=== PATIENT | male | born 1940 | race Caucasian/White ===

== ENCOUNTER 2019-10-10 17:14 | Observation (INO) ==
[2019-10-10] MEDS ORDERED: ASPIRIN CHEW 324 MG PO STA (17:39)
--- NOTE | 2019-10-10 18:03 | XRay Report ---
XR chest 1V portable HISTORY: 79 years-old Male Chest Pain . Atypical chest pain COMPARISON: CT thoracic spine 08/30/2018 TECHNIQUE: Portable AP view of the chest FINDINGS: Cardiac silhouette is enlarged. Prior median sternotomy. Hyperinflation with mild linear bibasilar de nsities suggestive of atelectasis. Pleural calcifications of the lung apices. There is no pneumothora x, pleural effusion, overt pulmonary edema or airspace consolidation typical for pneumonia. Hyperinfl ation. Degenerative changes of the shoulders and spine. IMPRESSION: Cardiomegaly without acute process. ACT 112: Negative or not required by law. The above report was generated using voice recognition software. It may contain grammatical, syntax o r spelling errors. Electronically signed by: Jerry Alexander M.D. 10/10/2019 6:02 PM
[2019-10-10 18:09] LABS: Basophils # (auto) 0.03 K/uL (0-0.2); Basophils % (auto) 0.2 %; Eosinophils # (auto) 0.17 K/uL (0-0.5); Eosinophils % (auto) 1.4 %; Hematocrit (blood only) 48.2 % (42-52); Hemoglobin 16.5 g/dL (14.0-18.0); Immature Granulocytes # (auto) 0.04 K/uL (0.00-0.02); Immature Granulocytes % (auto) 0.3 %; Lymphocytes # (auto) 2.95 K/uL (1.2-3.4); Lymphocytes % (auto) 24.4 %; Mean Corpuscular Hemoglobin 30.8 pg (25-34); Mean Corpuscular Hgb Conc 34.2 g/dL (32-36); Mean Corpuscular Volume 89.9 fL (80-100); Mean Platelet Volume 9.5 fL (7.4-10.4); Monocytes # (auto) 0.98 K/uL (0.11-0.59); Monocytes % (auto) 8.1 %; Neutrophils % (auto) 65.6 %; Platelet Count 318 K/uL (130-400); RDW Coefficient of Variation 13.1 % (11.5-14.5); RDW Standard Deviation 42.6 fL (36.4-46.3); Red Blood Count 5.36 M/uL (4.7-6.1); White Blood Count 12.07 K/uL (4.8-10.8)
[2019-10-10 18:22] LABS: Partial Thromboplastin Time 26.8 Seconds (21.0-31.0); Prothrombin Time 10.8 Seconds (9.0-12.0)
[2019-10-10 18:29] LABS: Albumin Level 4.2 gm/dl (3.4-5.0); Blood Urea Nitrogen 18 mg/dl (7-18); Calcium 9.1 mg/dl (8.5-10.1); Carbon Dioxide 25 mmol/L (21-32); Chloride 106 mmol/L (98-107); Glucose 93 mg/dl (70-99); Lipase 160 U/L (73-393); Potassium 4.1 mmol/L (3.5-5.1); Sodium 137 mmol/L (136-145)
[2019-10-10 19:13] LABS: Alanine Aminotransferase 67 U/L (12-78); Albumin Globulin Ratio 1.1 (0.9-2); Alkaline Phosphatase 89 U/L (45-117); BUN Creatinine Ratio 14.4 (10-20); Bilirubin,Total 0.4 mg/dl (0.2-1); Creatinine Clr Calc Pharmacy 65.2 ml/min; Est GFR (African American) 62.2; Est GFR (Non-African American) 53.6; Total Protein 8.2 gm/dl (6.4-8.2); Troponin I < 0.015 ng/ml (0-0.045)
[2019-10-10 19:22] LABS: Aspartate Aminotransferase 36 U/L (15-37)
--- NOTE | 2019-10-10 20:11 | Emergency Department Note ---
Entered by Eleonora Gardner acting as a scribe for Scott Carroen DO History of Present Illness General Chief complaint: Cardiac Assessment Stated complaint: SWEATS, CHEST PRESSURE, COULDN'T BREATH, ELEV BP Source: patient Mode of arrival: ambulatory Limitations: no limitations History of Present Illness Provider complaint: Chest pain Onset (ago): hour(s) (around 1400) Location: chest Pain Consistency: + now resolved and + other (episode) Quality: + other (pressure) Relieved By: + rest Associated symptoms: + diaphoresis and + other (Additional symptoms: difficulty breathing. Denies: arm pain, jaw pain, abdominal pain) Treatments prior to arrival: none The patient is a 79 year old male with a history of neck arthritis and hypertension who presents to the Emergency Room with complaints of a now- resolved episode of chest pain occurring around 1400 today. The patient reports that he was shopping at [email or web address] when he suddenly felt a chest pressure that made it difficult for him to breathe. He adds that he was diaphoretic but did not have any arm pain, jaw pain and abdominal pain. He notes that his chest symptoms started resolving before he even left the store. He predicts that it lasted for about 30 minutes and improved with rest. He reports that he subsequently saw Dr. Prudencio Triana at the [facility] prior to arrival. The patient states that he has no personal history of heart disease and catheterizations. He also notes that he does not smoke. Home Medications Home Medications Medication Instructions Recorded Confirmed Type aspirin 81 mg PO QAM 08/30/18 10/10/19 History cranberry 400 mg PO QAM 08/30/18 10/10/19 History finasteride 5 mg PO QAM 08/30/18 10/10/19 History lisinopril 10 mg PO QAM 08/30/18 10/10/19 History multivitamin 1 cap PO QAM 08/30/18 10/10/19 History levothyroxine 75 mcg PO QAM 10/10/19 10/10/19 History Allergies Allergy/AdvReac Type Severity Reaction Status Date / Time No Known Allergies Allergy Verified 10/10/19 18:15 Past Med/Surg History Medical History Arthritis of neck Hypertension Family History Brother Diabetes Other Family history non-contributory Social History marital status: Current Living Situation: Spouse current occupational status: retired Feels Safe at Home: Yes Smoking Status: Never smoker Review of Systems See HPI for pertinent positives & negatives. and A total of 10 systems reviewed and were otherwise negative Physical Exam Vital Signs Vital Signs - 24 hr 10/10/19 17:16 10/10/19 18:13 10/10/19 19:37 Temperature 36.8 C Temperature Source Oral Pulse Rate 70 Pulse Rate [Left Finger] 64 65 Pulse Rhythm [Left Finger] Regular Respiratory Rate 20 20 16 Respiratory Effort / Characteristics Non-Labored Spontaneous Non-Labored Spontaneous Respiratory Depth Normal Normal Blood Pressure 171/80 H Blood Pressure [Left Arm] 146/73 H 146/73 H Blood Pressure Mean 110 Blood Pressure Mean [Left Arm] 97 97 Blood Pressure Position Sitting Pulse Oximetry 98 97 99 Oxygen Delivery Method Room Air Room Air Sepsis Recent Fever Within 48 Hours No Sepsis Action Taken by Nursing No Action Required GENERAL: sitting up in bed, disheveled EYE EXAM: normal conjunctiva OROPHARYNX: no exudate, no erythema, lips, buccal mucosa, and tongue normal and mucous membranes are moist NECK: supple, no nuchal rigidity, no adenopathy, non-tender LUNGS: Clear to auscultation. Normal chest wall mechanics HEART: no murmurs, S1 normal and S2 normal ABDOMEN: abdomen soft, non-tender, normo-active bowel sounds, no masses, no rebound or guarding. BACK: Back is symmetrical on inspection and there is no deformity, no midline tenderness, no CVA tenderness. SKIN: no rashes and no bruising UPPER EXTREMITIES: upper extremities are grossly normal. LOWER EXTREMITIES: No pitting edema. Calves equal bilaterally. NEURO EXAM: Normal sensorium, cranial nerves II-XII grossly intact, normal speech, no gross weakness of arms, no gross weakness of legs. Gross sensation intact. Course Course ED COURSE: Vital signs were reviewed and showed hypertension The patients medical record was reviewed The above diagnostic studies were performed and reviewed. ED treatments and interventions as stated above. 1729: The patient was evaluated in room B6. A complete history and physical examination was performed. 1912: I discussed the patient's case with Dr. Pleitez- HospitalistJj. Dr. Pleitez will evaluate the patient for further management. 1930: Upon reevaluation, the patient is resting. I discussed my findings with the patient and he understands and agrees with the treatment plan. Based on the patients age, coexisting illnesses, exam and lab findings the decision to treat as an inpatient was made. The patient remained stable while under my care. The patient will be evaluated for further management. Consultations Consultation #1: I discussed the patient's case with Dr. Pleitez- HospitalistJj. Dr. Pleitez will evaluate the patient for further management. Time: 19:13 Administered Medications Discontinued Medications Aspirin (Aspirin) 324 mg PO NOW STA Stop: 10/10/19 17:40 Last Admin: 10/10/19 18:02 Dose: 324 mg Documented by: [id number] Medical Decision Making Differential Diagnosis Differential diagnoses includes but is not limited to pneumonia, bronchitis, COPD/Asthma exacerbation, pneumothorax, pulmonary embolism, congestive heart failure, acute coronary syndrome Medical Records Attestation: I reviewed the patient's medical records. Home Medications Current Medication List: was personally reviewed by me Laboratory Data Attestation: I reviewed the patient's lab results. Result diagrams: 10/10/19 17:57 10/10/19 17:57 Lab Results 10/10/19 10/10/19 10/10/19 Range/Units 17:57 17:57 17:57 WBC 12.07 H (4.8-10.8) K/uL RBC 5.36 (4.7-6.1) M/uL Hgb 16.5 (14.0-18.0) g/dL Hct 48.2 (42-52) % MCV 89.9 (80-100) fL MCH 30.8 (25-34) pg MCHC 34.2 (32-36) g/dL RDW Std Deviation 42.6 (36.4-46.3) fL RDW Coeff of Glory 13.1 (11.5-14.5) % Plt Count 318 (130-400) K/uL MPV 9.5 (7.4-10.4) fL Immature Gran % (Auto) 0.3 % Neut % (Auto) 65.6 % Lymph % (Auto) 24.4 % [place] % (Auto) 8.1 % Eos % (Auto) 1.4 % Baso % (Auto) 0.2 % Immature Gran # (Auto) 0.04 H (0.00-0.02) K/uL Neut # (Auto) 7.90 H (1.4-6.5) K/uL Lymph # (Auto) 2.95 (1.2-3.4) K/uL [place] # (Auto) 0.98 H (0.11-0.59) K/uL Eos # (Auto) 0.17 (0-0.5) K/uL Baso # (Auto) 0.03 (0-0.2) K/uL PT 10.8 (9.0-12.0) Seconds INR 1.0 (0.9-1.1) APTT 26.8 (21.0-31.0) Seconds PTT Ratio 1.0 Sodium 137 (136-145) mmol/L Potassium 4.1 (3.5-5.1) mmol/L Chloride 106 (98-107) mmol/L Carbon Dioxide 25 (21-32) mmol/L Anion Gap 6.0 (3-11) BUN 18 (7-18) mg/dl Creatinine 1.28 (0.6-1.4) mg/dl Est Cr Clr Drug Dosing 65.2 ml/min Est GFR ( Amer) 62.2 Est GFR (Non-Af Amer) 53.6 BUN/Creatinine Ratio 14.4 (10-20) Glucose 93 (70-99) mg/dl Calcium 9.1 (8.5-10.1) mg/dl Total Bilirubin 0.4 (0.2-1) mg/dl AST 36 (15-37) U/L ALT 67 (12-78) U/L Alkaline Phosphatase 89 (45-117) U/L Troponin I < 0.015 (0-0.045) ng/ml Total Protein 8.2 (6.4-8.2) gm/dl Albumin 4.2 (3.4-5.0) gm/dl Globulin 4.0 (2.5-4.0) gm/dl Albumin/Globulin Ratio 1.1 (0.9-2) Lipase 160 (73-393) U/L Imaging Data Radiologist's Impression: Radiology results as stated below per my review and the radiologist's interpretation: XR chest 1V portable HISTORY: 79 years-old Male Chest Pain . Atypical chest pain COMPARISON: CT thoracic spine 08/30/2018 TECHNIQUE: Portable AP view of the chest FINDINGS: Cardiac silhouette is enlarged. Prior median sternotomy. Hyperinflation with mild linear bibasilar densities suggestive of atelectasis. Pleural calcifications of the lung apices. There is no pneumothorax, pleural effusion, overt pulmonary edema or airspace consolidation typical for pneumonia. Hyperinflation. Degenerative changes of the shoulders and spine. IMPRESSION: Cardiomegaly without acute process. ACT 112: Negative or not required by law. The above report was generated using voice recognition software. It may contain grammatical, syntax or spelling errors. Electronically signed by: Jerry Alexander M.D. 10/10/2019 6:02 PM ECG Data Attestation: I personally reviewed and interpreted this ECG as follows: Indication: + chest pain Rate (beats per minute): 69 Rhythm: + sinus rhythm ECG [place]: + Normal ECG ST segments: + Nonspecific ST abnormalities (aVL and lateral) ECG Findings: no PVCs Blood Pressure Blood Pressure Findings: Elevated blood pressure Blood Pressure Disposition: further management by hospitalist POPPY Narrative Continuous Cardiac Monitoring: An order was placed for continuous cardiac luis angel toring. The monitor shows a rate of 69 with sinus rhythm.\ Patient is a 79-year-old male who presents the ER while shopping for precordial chest pain described as a heaviness associated with shortness of breath diaphoresis. IV was established blood work was obtained showed a mild leukocytosis. No significant anemia. INR unremarkable as well as BMP LFTs bilirubin troponin lipase. Patient EKG was nondiagnostic. Chest x-ray unremarkable. He was given aspirin. He was updated at bedside. Discussed with the hospitalist for observation due to his age and symptoms. He was pain-free upon arrival as this started around 2 and lasted for about 1/2-hour. Impression & Plan Precordial chest pain, Shortness of breath Discharge Plan Visit Data Chief Complaint: Cardiac Assessment Stated Complaint: SWEATS, CHEST PRESSURE, COULDN'T BREATH, ELEV BP ED Provider: Scott Carreon Discharge Problem: Precordial chest pain, Shortness of breath Patient Disposition: Admitted As Inpatient Forms Stand Alone Forms: [facility] Infogram Prescriptions Prescriptions: No Action aspirin 81 mg Tablet,Delayed Release (Dr/Ec) 81 mg PO QAM RF: 0 lisinopril 10 mg tablet 10 mg PO QAM RF: 0 cranberry 400 mg Capsule 400 mg PO QAM RF: 0 multivitamin Capsule 1 cap PO QAM RF: 0 finasteride 5 mg tablet 5 mg PO QAM RF: 0 levothyroxine 75 mcg tablet 75 mcg PO QAM RF: 0 Referrals Referrals: Prudencio Shipman MD [Primary Care Provider] - The scribe's documentation has been prepared under my direction and personally reviewed by me in its entirety. I confirm that the note above accurately reflects all work, treatment, procedures, and medical decision making performed by me.
[2019-10-10] MEDS ORDERED: POLYETHYLENE (MIRALAX) 17 GM PACK PO PRN (20:57)
[2019-10-10] MEDS ORDERED: ONDANSETRON INJ 2 MG/ML 2 ML VIAL IV PRN (20:57)
[2019-10-10] MEDS ORDERED: ACETAMINOPHEN 325 MG TAB PO PRN (20:57)
[2019-10-10] MEDS ORDERED: NITROGLYCERIN SL 0.4 MG/TAB TAB SL PRN (20:57)
--- NOTE | 2019-10-10 23:15 | History and Physical Report ---
DATE OF ADMISSION: 10/10/2019 CHIEF COMPLAINT: Chest pain. HISTORY OF PRESENT ILLNESS: This is a 79-year-old male with past medical history significant for hypertension, hypothyroidism, history of hyperlipidemia, currently not on any medications; chronic kidney disease stage III, history of cervical disc disorder, history of diabetes, history of focal prostate cancer, status post TURP in 2003, presents with chest pain. He was in the grocery store and walking when he had chest pain, pressure-like feeling about 4-5 in severity, associated with shortness of breath and sweating. It lasted about 10 minutes. He went to his PCP's office , ekg was ok and was advised to come to the ER. Currently, resting comfortably and hemodynamically stable. Denies any chest pain. Currently, no shortness of breath, no headache, no dizziness, no blurred vision, no earache, no runny nose, no sore throat. He gets on and off dry cough and with sometimes phlegm chronically , but denies any fever, chills, no nausea, no abdominal pain. Normal bowel and bladder movements. No diarrhea or constipation, no black stools or blood in the stools. No burning micturition, no swelling in the legs, no rash. ALLERGIES: No known drug allergies. PAST MEDICAL HISTORY: As mentioned above. PAST SURGICAL HISTORY: Removal of the prostate, partial TURP in June 2004. MEDICATIONS: The patient is currently on lisinopril 10 mg p.o. daily, Proscar 5 mg p.o. daily, levothyroxine 75 mcg p.o. daily, aspirin 81 mg p.o. daily, cranberry 400 mg p.o. daily, multivitamins 1 capsule p.o. daily. FAMILY HISTORY: Significant for brother has arthritis, diabetes, collapsed lung, polio. Sister has stroke. Father has diabetes. SOCIAL HISTORY: . No smoking, alcohol rare. No drug use. REVIEW OF SYMPTOMS: As per HPI. Rest of review of systems negative. PHYSICAL EXAMINATION: GENERAL: The patient is of moderate build, not in acute distress. VITAL SIGNS: Temperature 36.8, pulse 65, respiratory rate 16, blood pressure 146/73, oxygen 99% on room air. HEENT: No pallor, no icterus. Pupils equal, round, reactive to light. NECK: No JVD, no neck masses, no carotid bruits. CARDIOVASCULAR: S1, S2 heard, regular rate and rhythm, no murmur, no gallop. RESPIRATORY SYSTEM: Normal AP diameter. No accessory muscle use. No wheezing, no crackles. ABDOMEN: Soft, bowel sounds present, nontender. No distention. CENTRAL NERVOUS SYSTEM: Cranial nerves II-XII grossly intact, nonfocal. EXTREMITIES: No edema, no erythema. LABORATORY DATA: WBC 12, hemoglobin 16.5, hematocrit 48.2, platelets 318. PT 10.8, INR 1, APTT 26.8. Sodium 137, potassium 4.1, chloride 106, bicarbonate 25, BUN 18, creatinine 1.2, serum glucose 193, calcium 9.1, total bilirubin 0.4, AST 36, ALT 67, alkaline phosphatase 89. Troponin I less than 0.015. Lipase 160. Chest x-ray, cardiomegaly without acute process. EKG: Normal sinus rhythm with a rate of 69, no significant change was found. ASSESSMENT AND PLAN: This is a 79-year-old male who presents with chest pain, rule out acute coronary syndrome, risk factor of age, hypertension, currently asymptomatic. 1. Chest pain, shortness of breath, and diaphoresis for about 10 minutes when he was walking in the grocery store. Otherwise, he says he ambulates fine without difficulty. We will observe in tele floor. Serial cardiac enzymes, echocardiogram, n.p.o. after midnight and consult cardiology for further recommendations. We will monitor blood pressure and check his fasting lipid profile in a.m. Continue his home aspirin. 2. Hypertension. Continue lisinopril. 3. Hypothyroidism. Continue Synthroid. 4. Chronic kidney disease stage III, present creatinine 1.2, which is at baseline, of around 1.3 to 1.5. We will follow the labs in a.m. 5. History of prostate cancer. Focal on biopsies, status post partial prostatectomy in June 2004.Recent MRI of the prostate in January 2019 was unremarkable. On Proscar. Follows with urology. 6. Deep vein thrombosis prophylaxis, sequential compression devices. 7. Disposition: Observation in med/surg tele. Level 1 full code. Expect to discharge home and follow with his family doctor. OJHNIE
[2019-10-11 05:49] LABS: Basophils # (auto) 0.04 K/uL (0-0.2); Basophils % (auto) 0.3 %; Eosinophils # (auto) 0.37 K/uL (0-0.5); Hematocrit (blood only) 47.9 % (42-52); Hemoglobin 16.2 g/dL (14.0-18.0); Immature Granulocytes # (auto) 0.04 K/uL (0.00-0.02); Immature Granulocytes % (auto) 0.3 %; Lymphocytes % (auto) 30.1 %; Mean Corpuscular Hgb Conc 33.8 g/dL (32-36); Mean Corpuscular Volume 91.8 fL (80-100); Mean Platelet Volume 9.5 fL (7.4-10.4); Monocytes # (auto) 1.32 K/uL (0.11-0.59); Monocytes % (auto) 10.7 %; Neutrophils # (auto) 6.81 K/uL (1.4-6.5); Neutrophils % (auto) 55.6 %; Platelet Count 315 K/uL (130-400); RDW Coefficient of Variation 13.1 % (11.5-14.5); RDW Standard Deviation 43.7 fL (36.4-46.3); Red Blood Count 5.22 M/uL (4.7-6.1); White Blood Count 12.28 K/uL (4.8-10.8)
[2019-10-11 06:20] LABS: BUN Creatinine Ratio 13.7 (10-20); Blood Urea Nitrogen 17 mg/dl (7-18); Calcium 8.7 mg/dl (8.5-10.1); Carbon Dioxide 29 mmol/L (21-32); Chloride 108 mmol/L (98-107); Creatinine Clr Calc Pharmacy 64.8 ml/min; Est GFR (African American) 63.3; Est GFR (Non-African American) 54.7; Glucose 102 mg/dl (70-99); Sodium 141 mmol/L (136-145)
[2019-10-11 06:25] LABS: Chol HDL Ratio 6; Cholesterol 168 mg/dl (0-200); HDL Cholesterol 29 mg/dl; LDL Cholesterol Calculated 98 mg/dl; Triglycerides 205 mg/dl (0-150); Troponin I < 0.015 ng/ml (0-0.045); VLDL Cholesterol 41 mg/dl
[2019-10-11] MEDS ORDERED: LEVOTHYROXINE SODIUM 75 MCG TABLET PO SCH (06:30)
[2019-10-11] MEDS ORDERED: MULTIVITAMIN TAB PO SCH (09:00)
[2019-10-11] MEDS ORDERED: NON-FORMULARY MEDICATION (Cranberry 400 MG) PO SCH (09:00)
[2019-10-11] MEDS ORDERED: ASPIRIN 81 MG ECTAB PO SCH (09:00)
[2019-10-11] MEDS ORDERED: lisinopriL 10 MG TAB PO SCH (09:00)
[2019-10-11] MEDS ORDERED: FINASTERIDE 5 MG TAB PO SCH (09:00)
[2019-10-11] MEDS ORDERED: PERFLUTREN LIPID MICROSPHERE (DEFINITY) IV ONE (10:03)
--- NOTE | 2019-10-11 12:05 | Cardiology Consultation ---
Date of Consultation October 11, 2019 Assessment & Plan (1) Precordial chest pain: (2) Hypertension: This is a 79-year-old male patient with minimal past medical history who had some atypical chest pain with associated diaphoresis yesterday while walking through a store with his . His chest pain spontaneously resolved and has not returned. His cardiac markers are negative. His EKG has no acute changes. I will review his echocardiogram when it is completed. If that study is unremar kable I believe he may be discharged to outpatient follow-up. History of Present Illness Attending Physician: Shayy Hopper DO History of Present Illness This is a 79-year-old male patient with no prior history of heart disease. He has minimal risk factors for heart disease except for his age and some mild essential hypertension. He was in the store yesterday with his and he had approximately 10 minutes of chest discomfort with associated nausea and diaphoresis that resolved on its own. He was seen in his primary care physician's office who then referred him to the ER where he has been admitted. After admission his cardiac markers have been negative. EKGs have been without acute changes. He has no current complaints today. He denies any recent history of progressive shortness of breath or activity related chest pain. He has had no heart palpitations, dizziness or lightheadedness. Allergies Allergy/AdvReac Type Severity Reaction Status Date / Time No Known Allergies Allergy Verified 10/10/19 18:15 Home Medications Home Medications Medication Instructions Recorded Confirmed Type aspirin 81 mg PO QAM 08/30/18 10/10/19 History cranberry 400 mg PO QAM 08/30/18 10/10/19 History finasteride 5 mg PO QAM 08/30/18 10/10/19 History lisinopril 10 mg PO QAM 08/30/18 10/10/19 History multivitamin 1 cap PO QAM 08/30/18 10/10/19 History levothyroxine 75 mcg PO QAM 10/10/19 10/10/19 History Patient History Medical History Arthritis of neck Hypertension Family History Brother Diabetes Other Family history non-contributory Social History (Reviewed 10/11/19 @ 12:03 by TIMOTHY Amor Preferred Language: Sami Communication Ability: Effective Dish Washer Required: No Beliefs That Will Affect Care: None marital status: Current Living Situation: Spouse current occupational status: retired Feels Safe at Home: Yes Safety Concerns: Feels Safe At This Time Smoking Status: Never smoker Hx Alcohol Use: Yes Alcohol type: beer Hx Substance Use: No Review of Systems Review of Systems: All systems reviewed & are unremarkable except as noted in HPI & below Nothing additional to add. Physical Exam Physical Exam: General: no acute distress and stated age Head: normocephalic, no masses, lesions, tenderness or abnormalities Eyes: conjunctiva are pink and non-injected, sclera clear Neck: supple, no adenopathy, no bruits, normal jugular venous pulse, no hepatojugular reflux Chest: normal shape and normal respiratory effort Lungs: clear to auscultation and percussion Cardiac Exam: - regular rate & rhythm, no murmurs gallops or rubs - normal S1, normal S2 Pulses: 2(+) throughout Abdomen: abdomen soft, non-tender, no abnormal masses and no hepatosplenomegaly Musculoskeletal: no gait disturbance, no joint inflammation, no deforming arthritis Extremities: no edema and no cyanosis Neuro: grossly normal exam Results & Data ([facility]) Vital Signs (Past 12 Hours) Vital Signs Temp Pulse Pulse Resp BP Pulse Ox 10/11/19 07:30 36.4 C L 72 18 158/89 H 98 10/11/19 07:06 53 L 10/11/19 04:08 36.7 C 50 L 19 146/80 H 98 Laboratory Results Laboratory Results - last 24 hr 10/10/19 10/10/19 10/10/19 17:57 17:57 17:57 WBC 12.07 H RBC 5.36 Hgb 16.5 Hct 48.2 MCV 89.9 MCH 30.8 MCHC 34.2 RDW Std Deviation 42.6 RDW Coeff of Glory 13.1 Plt Count 318 MPV 9.5 Immature Gran % (Auto) 0.3 Neut % (Auto) 65.6 Lymph % (Auto) 24.4 [place] % (Auto) 8.1 Eos % (Auto) 1.4 Baso % (Auto) 0.2 Immature Gran # (Auto) 0.04 H Neut # (Auto) 7.90 H Lymph # (Auto) 2.95 [place] # (Auto) 0.98 H Eos # (Auto) 0.17 Baso # (Auto) 0.03 PT 10.8 INR 1.0 APTT 26.8 PTT Ratio 1.0 Sodium 137 Potassium 4.1 Chloride 106 Carbon Dioxide 25 Anion Gap 6.0 BUN 18 Creatinine 1.28 Est Cr Clr Drug Dosing 65.2 Est GFR ( Amer) 62.2 Est GFR (Non-Af Amer) 53.6 BUN/Creatinine Ratio 14.4 Glucose 93 Calcium 9.1 Magnesium Total Bilirubin 0.4 AST 36 ALT 67 Alkaline Phosphatase 89 Troponin I < 0.015 Total Protein 8.2 Albumin 4.2 Globulin 4.0 Albumin/Globulin Ratio 1.1 Triglycerides Cholesterol LDL Cholesterol, Calc VLDL Cholesterol, Calc HDL Cholesterol Cholesterol/HDL Ratio Lipase 160 10/11/19 10/11/19 10/11/19 05:22 05:22 10:37 WBC 12.28 H RBC 5.22 Hgb 16.2 Hct 47.9 MCV 91.8 MCH 31.0 MCHC 33.8 RDW Std Deviation 43.7 RDW Coeff of Glory 13.1 Plt Count 315 MPV 9.5 Immature Gran % (Auto) 0.3 Neut % (Auto) 55.6 Lymph % (Auto) 30.1 [place] % (Auto) 10.7 Eos % (Auto) 3.0 Baso % (Auto) 0.3 Immature Gran # (Auto) 0.04 H Neut # (Auto) 6.81 H Lymph # (Auto) 3.70 H [place] # (Auto) 1.32 H Eos # (Auto) 0.37 Baso # (Auto) 0.04 PT INR APTT PTT Ratio Sodium 141 Potassium 4.0 Chloride 108 H Carbon Dioxide 29 Anion Gap 4.0 BUN 17 Creatinine 1.26 Est Cr Clr Drug Dosing 64.8 Est GFR ( Amer) 63.3 Est GFR (Non-Af Amer) 54.7 BUN/Creatinine Ratio 13.7 Glucose 102 H Calcium 8.7 Magnesium 2.0 Total Bilirubin AST ALT Alkaline Phosphatase Troponin I < 0.015 < 0.015 Total Protein Albumin Globulin Albumin/Globulin Ratio Triglycerides 205 H Cholesterol 168 LDL Cholesterol, Calc 98 VLDL Cholesterol, Calc 41 HDL Cholesterol 29 Cholesterol/HDL Ratio 6 Lipase Medications Administered Current Inpatient Medications Acetaminophen (Tylenol) 650 mg PO Q4H PRN PRN Reason: Pain or Fever Stop: 11/09/19 20:56 Aspirin (Ecotrin Ectab) 81 mg PO [facility] Stop: 11/10/19 08:59 Last Admin: 10/11/19 09:29 Dose: 81 mg Documented by: [facility] ([facility]) [facility] [place]: 11/10/19 08:59 Last Admin: 10/11/19 09:29 Dose: 5 mg Documented by: [facility]othy[facility]ine [facility] Stop: 11/10/19 06:29 Last Admin: 10/11/19 05:49 Dose: Not Given Documented by: Lisinopril (Zestril) 10 mg PO [facility] Stop: 11/10/19 08:59 Last Admin: 10/11/19 09:29 Dose: 10 mg Documented by: Multivitamins (Multivitamin Tab) 1 tab PO [facility] Stop: 11/10/19 08:59 Last Admin: 10/11/19 09:29 Dose: 1 tab Documented by: Nitroglycerin (Nitrostat) 0.4 mg SL UD PRN PRN Reason: Chest Pain Stop: 11/09/19 20:56 Ondansetron HCl (Zofran) 4 mg IV Q6H PRN PRN Reason: Nausea Stop: 11/09/19 20:56 Polyethylene Glycol (Miralax Powder Packet) 17 gm PO DAILY PRN PRN Reason: Constipation Stop: 11/09/19 20:56
--- NOTE | 2019-10-11 14:05 | Discharge Summary ---
Date of Service October 11, 2019 Admission HPI Per Admitting Provider HISTORY OF PRESENT ILLNESS: This is a 79-year-old male with past medical history significant for hypertension, hypothyroidism, history of hyperlipidemia, currently not on any medications; chronic kidney disease stage III, history of cervical disc disorder, history of diabetes, history of focal prostate cancer, status post TURP in 2003, presents with chest pain. He was in the grocery store and walking when he had chest pain, pressure-like feeling about 4-5 in severity, associated with shortness of breath and sweating. It lasted about 10 minutes. He went to his PCP's office , ekg was ok and was advised to come to the ER. Currently, resting comfortably and hemodynamically stable. Denies any chest pain. Currently, no shortness of breath, no headache, no dizziness, no blurred vision, no earache, no runny nose, no sore throat. He gets on and off dry cough and with sometimes phlegm chronically , but denies any fever, chills, no nausea, no abdominal pain. Normal bowel and bladder movements. No diarrhea or constipation, no black stools or blood in the stools. No burning micturition, no swelling in the legs, no rash. Admission Exam Per Admitting Provider PHYSICAL EXAMINATION: GENERAL: The patient is of moderate build, not in acute distress. VITAL SIGNS: Temperature 36.8, pulse 65, respiratory rate 16, blood pressure 146/73, oxygen 99% on room air. HEENT: No pallor, no icterus. Pupils equal, round, reactive to light. NECK: No JVD, no neck masses, no carotid bruits. CARDIOVASCULAR: S1, S2 heard, regular rate and rhythm, no murmur, no gallop. RESPIRATORY SYSTEM: Normal AP diameter. No accessory muscle use. No wheezing, no crackles. ABDOMEN: Soft, bowel sounds present, nontender. No distention. CENTRAL NERVOUS SYSTEM: Cranial nerves II-XII grossly intact, nonfocal. EXTREMITIES: No edema, no erythema. Principal Diagnosis chest pain Discharge Data Allergies Allergy/AdvReac Type Severity Reaction Status Date / Time No Known Allergies Allergy Verified 10/10/19 18:15 Consultations 10/10/19 19:19 ED Decision to Admit Stat 10/10/19 20:57 Consult Case Management - Discharge Planning Routine 10/11/19 08:00 Consult Cardiology Routine Hospital Course (1) Precordial chest pain: (2) Hypertension: 79-year-old man was admitted to the Hospitalist service with chest pain and high blood pressure. He has minimal risk factors for heart disease except for his age and some mild essential hypertension. His cardiac markers were tr ended and negative. EKGs were without acute changes and he did not have a reoccurrence of chest pain or other symptoms during the hospitalization. Cardiology was consulted and recommended an echocardiogram which revealed an ejection fraction of 55 to 60% with normal left ventricular wall thickness and normal left ventricular systolic function. Grade 1 diastolic dysfunction was noted with normal right ventricular systolic function and no significant valvular pathology. Outpatient primary care follow-up was recommended. At time of discharge she was hemodynamically stable and afebrile and tolerating p.o. He was mentating and ambulating at baseline and oxygenating well on room air. He was discharged in stable condition. Physical exam at time of discharge was unremarkable. As a result of his elevation in blood pressure his lisinopril was increased at time of discharge. Outpatient primary care follow-up will be important for recheck of blood pressure and a repeat BMP in 2 weeks after increase in lisinopril dose. Additionally, consideration for further ischemic work-up as outpatient will be deferred to primary care doctor. Total Time Total Time Spent Total Time Spent (In Minutes): 60 Total Time Includes: Examination of the Patient, Discharge Planning, Medication Reconciliation and Communication With Other Providers Discharge Plan Discharge Items Patient Disposition: Home - Self-Care Reason For Visit: CHEST PAIN Discharge Diagnosis: Chest Pain Condition on Discharge: Good Activity: Resume your previous activity Non-emergency contact: Primary Care Provider Call non-emergency contact if: you have any medication questions, your symptoms worsen, your pain is not controlled, your pain is worsening, your pain is unusual for you, your pain is concerning for you and you have a fever Follow-up/Referrals: Prudencio Zamora MD [Primary Care Provider] - (DR ZAMORA'S OFFICE WILL CALL YOU TO SET UP APPOINTMENT.) Diet: Low Sodium (2gm) Addtl Attending Provider Instructions: Please take all medications as instructed on discharge list below. As we discussed regarding her blood pressure medicine please increase this to 20 mg daily. As a result of this increase it is recommended that you have blood work done through your primary care doctor's office in 1 to 2 weeks to check on your kidneys and electrolytes. It is recommended that you follow-up with your primary care provider within 1 week of discharge of the hospitalization. This is in order to recheck your blood pressure, ensure that you have no further chest pain episodes, and to ensure you have appropriate follow-up with cardiology as recommended. Someone should contact you from [facility] cardiology office after the weekend regarding a follow-up appointment. It was a pleasure taking care of you! Please call if you have any questions or problems. You can reach a [facility] hospitalist on duty at [facility] 24 hours a day by calling [phone]. Take care of yourself. Shayy Hopper, DO [place]ist Pending Studies at Discharge: No Stand-Alone Forms: My [facility], Smoking Cessation Medications and DC Order Prescriptions: New lisinopril 20 mg tablet 20 mg PO DAILY Qty: 30 RF: 1 Continued aspirin 81 mg Tablet,Delayed Release (Dr/Ec) 81 mg PO QAM RF: 0 cranberry 400 mg Capsule 400 mg PO QAM RF: 0 multivitamin Capsule 1 cap PO QAM RF: 0 finasteride 5 mg tablet 5 mg PO QAM RF: 0 levothyroxine 75 mcg tablet 75 mcg PO QAM RF: 0 Discontinued lisinopril 10 mg tablet 10 mg PO QAM RF: 0 Discharge Orders: Discharge Order (Routine); Ordered 10/11/19 Ordered By: Shayy Hopper Admission Data Admit Date/Time: 10/10/19 19:48 Attending Provider: Shayy Hopper Admit Provider: Isael Pleitez Primary Care Provider: Prudencio Zamora Other Providers: Isael Pleitez ; Arturo Jacobs Other Interventions: Discharge Summary Assessment (RN) Last Done: 10/11/19 14:18 DC Date/Time DO NOT enter until pt leaves facility: 10/11/19 14:56
[2019-10-11] MEDS ORDERED: lisinopriL 10 MG TAB PO ONE (14:30)
[2019-10-12] MEDS ORDERED: lisinopriL 20 MG TAB PO SCH (09:00)
--- NOTE | 2019-10-13 12:06 | Electrocardiogram Report ---
Test Reason : Blood Pressure : / mmHG Vent. Rate : 069 BPM Atrial Rate : 069 BPM P-R Int : 198 ms QRS Dur : 102 ms QT Int : 406 ms P-R-T Axes : 075 -09 061 degrees QTc Int : 435 ms Normal sinus rhythm Normal ECG When compared with ECG of 30-AUG-2018 10:49, No significant change was found Confirmed by Alexx Renee ([id number]) on 10/13/2019 12:06:26 PM Referred By: REFERRED SELF Confirmed By:Alexx Renee
--- NOTE | 2019-10-13 12:19 | Electrocardiogram Report ---
Test Reason : Blood Pressure : / mmHG Vent. Rate : 054 BPM Atrial Rate : 054 BPM P-R Int : 216 ms QRS Dur : 098 ms QT Int : 430 ms P-R-T Axes : 080 019 072 degrees QTc Int : 407 ms Sinus bradycardia with 1st degree A-V block Otherwise normal ECG When compared with ECG of 10-OCT-2019 17:27, (unconfirmed) No significant change was found Confirmed by Alexx Renee ([id number]) on 10/13/2019 12:19:06 PM Referred By: REFERRED SELF Confirmed By:Alexx Renee
== END 2019-10-11 14:56 | disposition home or self-care (01) ==
LOC: 2N 17:14 → ED 17:14 → 2N 20:18